=== PATIENT | male | born 1965 | race Caucasian/White ===

== ENCOUNTER 2018-05-09 11:35 | Day surgery (SDC) | payer BC ==
[2018-05-09] MEDS ORDERED: FENTAnyl 50 MCG/ML VIAL (13:53)
[2018-05-09] MEDS ORDERED: ONDANSETRON 4 MG INJ IV (14:00)
[2018-05-09] MEDS ORDERED: ETOMIDATE 20 MG INJ (14:12)
[2018-05-09] MEDS ORDERED: PROPOFOL 20 ML (14:57)
== END 2018-05-09 16:14 | disposition home or self-care (01) ==
LOC: GIL 11:35
DX: K50.90 Crohn's disease, unspecified, without complications (principal); K62.1 Rectal polyp; K57.30 Diverticulosis of large intestine without perforation or abscess without bleeding; K29.70 Gastritis, unspecified, without bleeding; E66.9 Obesity, unspecified; Z68.31 Body mass index [BMI] 31.0-31.9, adult
CPT/HCPCS: 43239; 82962; 88305

== ENCOUNTER 2018-11-12 10:59 | Inpatient (IN) | payer BC ==
[2018-11-12] MEDS: NACL 0.9% 3 ML SYG IV ×3 (06:00→22:00)
[~2018-11-12 10:59] MED LIST: CEFAZOLIN 1 GM/50 ML (PMX) 50 ML IVPB
[2018-11-12 12:21] LABS: WHITE BLOOD COUNT 6.1 10^3/ul (4.8-10.8)
[2018-11-12 12:21] LABS: ADD MAN DIFF? NO; BASOPHIL # 0.1 10^3/ul (0.0-0.1); EOSINOPHILS # 0.7 10^3/ul (0.0-0.5); EOSINOPHILS % 11.5 % (0.0-7.0); HEMATOCRIT 40.8 % (42.0-52.0); HEMOGLOBIN 13.6 g/dl (14.0-18.0); LYMPHOCYTES # 1.2 10^3/ul (0.8-2.9); LYMPHOCYTES % 19.9 % (15.0-51.0); MEAN CORPUSCULAR HEMOGLOBIN 28.5 pg (29.0-33.0); MEAN CORPUSCULAR HGB CONC 33.3 g/dl (32.0-37.0); MEAN CORPUSCULAR VOLUME 85.5 fl (82.0-101.0); MEAN PLATELET VOLUME 9.8 fl (7.4-10.4); MONOCYTES % 15.6 % (0.0-11.0); NEUTROPHIL # 3.2 10^3/ul (1.6-7.5); NEUTROPHILS % 51.8 % (39.0-77.0); PLATELET COUNT 236 10^3/UL (140-415); RED BLOOD COUNT 4.77 10^6/ul (4.70-6.10); RED CELL DISTRIBUTION WIDTH 13.5 % (11.5-14.5)
[2018-11-12] MEDS: ALBUTEROL/IPRATROPIUM (NEB) 3 ML AMP HHN (12:40)
[2018-11-12] MEDS: FUROSEMIDE 40 MG INJ IV (12:40)
[2018-11-12 12:43] LABS: ALANINE AMINOTRANSFERASE 73 IU/L (13-69); ALBUMIN 4.3 g/dl (3.3-4.9); ALBUMIN/GLOBULIN RATIO 1.59; ALKALINE PHOSPHATASE 95 IU/L (42-121); ANION GAP 9 (5-13); ASPARTATE AMINO TRANSFERASE 55 IU/L (15-46); BILIRUBIN,INDIRECT 0.6 mg/dl (0-1.1); BILIRUBIN,TOTAL 0.6 mg/dl (0.2-1.3); BLOOD UREA NITROGEN 14 mg/dl (7-20); CALCIUM 9.1 mg/dl (8.4-10.2); CARBON DIOXIDE 30 mmol/L (21-31); CHLORIDE 107 mmol/L (97-110); CREATININE 1.05 mg/dl (0.61-1.24); Estimated GFR > 60 mL/min (>60); GLUCOSE 100 mg/dl (70-220); POTASSIUM 4.6 mmol/L (3.5-5.1)
[2018-11-12 12:45] LABS: INR 0.98; PARTIAL THROMBOPLASTIN TIME 26.5 Sec (23.0-35.0); PROTIME 13.1 Sec (11.9-14.9)
[2018-11-12 12:46] LABS: SODIUM 146 mmol/L (135-144)
[2018-11-12] MEDS ORDERED: IODIXANOL LOCM 100 ML BTL ×3 (13:09→14:22)
[2018-11-12] MEDS ORDERED: LIDOCAINE 1% (MDV) 20 ML INJ (13:09)
[2018-11-12] MEDS ORDERED: MIDAZOLAM 1 MG/ML 2 ML INJ (13:09)
[2018-11-12] MEDS ORDERED: HEPARIN 1000 UNITS/ML 10 ML INJ (13:09)
[2018-11-12] MEDS ORDERED: FENTAnyl 50 MCG/ML VIAL (13:10)
[2018-11-12] MEDS ORDERED: BIVALIRUDIN 250MG /NS 50 ML 50 ML IVPB ×3 (14:23→16:00)
[2018-11-12] MEDS ORDERED: CLOPIDOGREL 300 MG TAB (14:44)
[2018-11-12] MEDS ORDERED: ONDANSETRON 4 MG INJ IV (15:00)
[2018-11-12] MEDS ORDERED: ZOLPIDEM 5 MG TAB PO (15:00)
[2018-11-12] MEDS ORDERED: AL HYDROX/MG HYDROX/SIMETH 30 ML CUP PO (15:00)
[2018-11-12] MEDS: SOD CHLORIDE 0.9% 1,000 ML IV (16:40)
[2018-11-12] MEDS: morphine 2 MG INJ IV ×3 (16:47→20:58)
[2018-11-12] MEDS ORDERED: ATROPINE 1 MG/10 ML SYRINGE (17:53)
[2018-11-12] MEDS: INSULIN ASPART [NOVOLOG] 3 ML PEN SC ×2 (18:00→20:47)
[2018-11-12] MEDS ORDERED: GLUCOSE GEL 15 GRAM TUBE PO ×2 (19:00)
[2018-11-12] MEDS ORDERED: GLUCOSE GEL 15 GRAM TUBE BUCCAL (19:00)
[2018-11-12] MEDS ORDERED: DEXTROSE 50% 50 ML SYRINGE IV ×2 (19:00)
[2018-11-12] MEDS ORDERED: GLUCAGON 1 MG INJ IM (19:00)
[2018-11-12] MEDS: CYCLOSPORINE 25 MG CAP PO (21:00)
[2018-11-12] MEDS: AMITRIPTYLINE 25 MG TAB PO (22:00)
[2018-11-12] MEDS: ATORVASTATIN 80 MG TAB PO (22:00)
[2018-11-12] MEDS: LORATADINE 10 MG TAB PO (22:00)
[2018-11-13] MEDS: ACCU-CHEK XX (01:55)
[2018-11-13] MEDS: ACETAMINOPHEN 325 MG TAB PO (01:58)
[2018-11-13 05:44] LABS: ADD MAN DIFF? NO; BASOPHIL # 0.1 10^3/ul (0.0-0.1); BASOPHILS % 0.8 % (0.0-2.0); EOSINOPHILS # 0.6 10^3/ul (0.0-0.5); EOSINOPHILS % 9.7 % (0.0-7.0); HEMATOCRIT 39.1 % (42.0-52.0); LYMPHOCYTES # 1.2 10^3/ul (0.8-2.9); LYMPHOCYTES % 19.2 % (15.0-51.0); MEAN CORPUSCULAR HEMOGLOBIN 28.7 pg (29.0-33.0); MEAN CORPUSCULAR HGB CONC 33.2 g/dl (32.0-37.0); MEAN CORPUSCULAR VOLUME 86.3 fl (82.0-101.0); MONOCYTE # 0.9 10^3/ul (0.3-0.9); MONOCYTES % 15.5 % (0.0-11.0); NEUTROPHIL # 3.3 10^3/ul (1.6-7.5); NEUTROPHILS % 54.6 % (39.0-77.0); PLATELET COUNT 213 10^3/UL (140-415); RED BLOOD COUNT 4.53 10^6/ul (4.70-6.10); RED CELL DISTRIBUTION WIDTH 13.6 % (11.5-14.5)
[2018-11-13 06:10] LABS: MAGNESIUM 2.1 mg/dl (1.7-2.5)
[2018-11-13 06:10] LABS: PHOSPHORUS 4.8 mg/dl (2.5-4.9)
[2018-11-13 06:26] LABS: ANION GAP 8 (5-13); BLOOD UREA NITROGEN 18 mg/dl (7-20); CALCIUM 8.7 mg/dl (8.4-10.2); CARBON DIOXIDE 29 mmol/L (21-31); CHLORIDE 107 mmol/L (97-110); CHOL/HDL RATIO 4.7 RATIO; CHOLESTEROL 137 mg/dl (100-200); CK INDEX 3.9; CREATINE KINASE 62 IU/L (23-200); Estimated GFR > 60 mL/min (>60); GLUCOSE 122 mg/dl (70-220); HDL CHOLESTEROL 29 mg/dl (28-71); LDL CHOLESTEROL,CALCULATED 63 mg/dl; POTASSIUM 3.9 mmol/L (3.5-5.1); SODIUM 144 mmol/L (135-144); TRIGLYCERIDES 227 mg/dl (0-149)
[2018-11-13 06:33] LABS: TROPONIN-I 0.622 ng/ml (0.000-0.120)
[2018-11-13] MEDS: INSULIN ASPART [NOVOLOG] 3 ML PEN SC ×2 (07:35→11:29)
[2018-11-13] MEDS: ASPIRIN (EC) 81 MG TAB PO (08:19)
[2018-11-13] MEDS: LORATADINE 10 MG TAB PO (08:20)
[2018-11-13] MEDS: METOPROLOL (XL) 50 MG TAB PO (08:20)
[2018-11-13] MEDS: CLOPIDOGREL 75 MG TAB PO (08:20)
[2018-11-13] MEDS: PANTOPRAZOLE (EC) 40 MG TAB PO (08:22)
[2018-11-13] MEDS: CYCLOSPORINE 25 MG CAP PO (08:25)
[2018-11-13] MEDS: OXYCODONE/ACETAMINOPHEN (5/325) TAB PO (09:16)
[2018-11-13] MEDS: MESALAMINE (SR) 250 MG CAP PO (09:57)
[2018-11-13] MEDS: BUDESONIDE (EC) 3 MG CAP PO (11:00)
[2018-11-13 11:31] LABS: CREATINE KINASE 57 IU/L (23-200)
[2018-11-13 11:44] LABS: CK-MB 1.71 ng/ml (0.0-2.4)
[2018-11-13 11:51] LABS: TROPONIN-I 0.381 ng/ml (0.000-0.120)
== END 2018-11-13 16:35 | disposition home or self-care (01) | DRG 247 ==
LOC: SDS 10:59 → ICU 20:40
PROC: 4A023N7 Measurement of Cardiac Sampling and Pressure, Left Heart, Percutaneous Approach (ICD-10-PCS; 2018-11-12 13:00)
PROC: B211YZZ Fluoroscopy of Multiple Coronary Arteries using Other Contrast (ICD-10-PCS; 2018-11-12 13:00)
PROC: B215YZZ Fluoroscopy of Left Heart using Other Contrast (ICD-10-PCS; 2018-11-12 13:00)
PROC: 027034Z Dilation of Coronary Artery, One Artery with Drug-eluting Intraluminal Device, Percutaneous Approach (ICD-10-PCS; principal; 2018-11-12 13:12)
DX: I25.110 Atherosclerotic heart disease of native coronary artery with unstable angina pectoris (principal); K50.90 Crohn's disease, unspecified, without complications; I73.9 Peripheral vascular disease, unspecified; I10 Essential (primary) hypertension; E11.9 Type 2 diabetes mellitus without complications; E78.5 Hyperlipidemia, unspecified; F32.9 Major depressive disorder, single episode, unspecified; J45.909 Unspecified asthma, uncomplicated; Z79.4 Long term (current) use of insulin; Z79.82 Long term (current) use of aspirin; Z79.02 Long term (current) use of antithrombotics/antiplatelets; Z95.1 Presence of aortocoronary bypass graft; Z95.5 Presence of coronary angioplasty implant and graft; I25.2 Old myocardial infarction
CPT/HCPCS: 71045; 80048; 80053; 80061; 82550; 82553; 82962; 83735; 84100; 84484; 85025; 85610; 85730; 87081; 93005; 93455; 93922; 94664